=== PATIENT | female | born 1965 | race Caucasian/White ===

== ENCOUNTER 2016-12-24 18:44 | Inpatient (IN) | payer OTHER ==
[2016-12-24] MEDS ORDERED: MAGNESIUM CITRATE 300 ML BOTTLE PO PRN (20:34)
[2016-12-24] MEDS ORDERED: hydrOXYzine PAMOATE 50 MG CAPSULE (FP) PO PRN (20:34)
[2016-12-24] MEDS ORDERED: chlordiazePOXIDE HCL 25 MG CAPSULE PO ONE (20:34)
[2016-12-24] MEDS ORDERED: guaiFENesin/D-METHORPHAN HB 10 ML UNIT-DOSE CUPS PO PRN (20:34)
[2016-12-24] MEDS ORDERED: LOPERAMIDE HCL 2 MG CAPSULE PO PRN (20:34)
[2016-12-24] MEDS ORDERED: MENTHOL/PHENOL 1 EACH UD MM PRN (20:34)
[2016-12-24] MEDS ORDERED: IBUPROFEN 400 MG TABLET (FP) PO PRN (20:34)
[2016-12-24] MEDS ORDERED: MAG HYDROX/AL HYDROX/SIMETH 30 ML UNIT-DOSE CUP PO PRN (20:34)
[2016-12-24] MEDS ORDERED: P-EPHED 60MG/TRIPROLIDI 2.5MG TABLET PO PRN (20:34)
[2016-12-24] MEDS ORDERED: MAGNESIUM HYDROX 2400MG/30ML ORAL SUSPENSION 30 ML CUP PO PRN (20:34)
[2016-12-24 20:45] VITALS: BMI 32.5
--- NOTE | 2016-12-24 20:45 | HP ---
CIWA Score - CIWA Score Nausea/Vomitin-Mild Nausea/No Vomiting Muscle Tremors: 4-Moderate,w/Arms Extend Anxiety: 4-Mod. Anxious/Guarded Agitation: 4-Moderately Restless Paroxysmal Sweats: 1-Minimal Palms Moist Orientation: 0-Oriented Tacttile Disturbances: 0-None Auditory Disturbances: 0-None Visual Disturbances: 0-None Headache: 2-Mild CIWA-Ar Total Score: 16 Admission ROS BHS - HPI Chief Complaint: WITHDRAWAL SX Allergies/Adverse Reactions: Allergies Allergy/AdvReac Type Severity Reaction Status Date / Time No Known Allergies Allergy Verified 12/24/16 19:42 History of Present Illness: 51 YEARS OLD FEMALE WITH LONG HISTORY OF ALCOHOL DEPENDENCE MENAPAUSE X 3 YEARS HAS SEVERE ANXIETY TAKING CROWED TRAIN TO WORK IS ADMITTED TO DETOX Exam Limitations: No Limitations - Ebola screening Have you traveled outside of the country in the last 21 days: No Have you had contact with anyone from an Ebola affected area: No Have you been sick,other than usual withdrawal symptoms: No Do you have a fever: No - Review of Systems Constitutional: Chills, Changes in sleep, Weight Stable EENT: reports: Dental Problems (CURRENT DENTAL WORK) Respiratory: reports: No Symptoms reported Cardiac: reports: No Symptoms Reported GI: reports: Nausea, Poor Fluid Intake, Abdominal cramping : reports: No Symptoms Reported Musculoskeletal: reports: Back Pain, Joint Pain (KNEES) Integumentary: reports: No Symptoms Reported Neuro: reports: Tremors Endocrine: reports: No Symptoms Reported Hematology: reports: No Symptoms Reported Psychiatric: reports: Judgement Intact, Anxious Other Systems: Reviewed and Negative Patient History - Patient Medical History Hx Anemia: No Hx Asthma: No Hx Chronic Obstructive Pulmonary Disease (COPD): No Hx Cancer: No Hx Cardiac Disorders: No Hx Congestive Heart Failure: No Hx Hypertension: No Hx Hypercholesterolemia: No Hx Pacemaker: No HX Cerebrovascular Accident: No Hx Seizures: No Hx Dementia: No Hx Diabetes: No Hx Gastrointestinal Disorders: No Hx Liver Disease: No Hx Genitourinary Disorders: No Hx Sexually Transmitted Disorders: No Hx Renal Disease (ESRD): No Hx Thyroid Disease: No Hx Human Immunodeficiency Virus (HIV): No Hx Hepatitis C: No Hx Depression: No Hx Suicide Attempt: No Hx Bipolar Disorder: No Hx Schizophrenia: No - Patient Surgical History Past Surgical History: No Hx Neurologic Surgery: No Hx Cataract Extraction: No Hx Cardiac Surgery: No Hx Lung Surgery: No Hx Breast Surgery: No Hx Breast Biopsy: No Hx Abdominal Surgery: No Hx Appendectomy: No Hx Cholecystectomy: No Hx Genitourinary Surgery: No Hx Section: No Hx Orthopedic Surgery: No Other Surgical History: DENTAL Anesthesia Reaction: No - PPD History Previous Implant?: Yes Documented Results: Negative w/o proof Implanted On Prior [facility] Admission?: No PPD to be Administered?: Yes - Reproductive History Patient is a Female of Child Bearing Age (11 -55 yrs old): Yes Last Menstrual Period: 12/17/11 Patient : No - Smoking Cessation Smoking history: Former smoker Have you smoked in the past 12 months: No Cigars Per Day: 0 Hx Chewing Tobacco Use: No Initiated information on smoking cessation: No - Substance & Tx. History Hx Alcohol Use: Yes Hx Substance Use: No Substance Use Type: Alcohol Hx Substance Use Treatment: No - Substances Abused Alcohol Route: Oral Frequency: Daily Amount used: liquor- 1 pint, wine - 3 litres Age of first use: 13 Date of Last Use: 12/24/16 Family Disease History - Family Disease History Family Disease History: Heart Disease: Daughter, [place]: Mother (LUNG ), Other: Father (VASCULAR ) Admission Physical Exam BHS - Vital Signs Vital Signs: Vital Signs - 24 hr 12/24/16 19:42 Temperature 97.1 F L Pulse Rate 111 H Respiratory 20 Rate Blood Pressure 142/93 - Physical General Appearance: Yes: Appropriately Dressed, Moderate Distress, Alcohol on Breath, Obese, Tremorous, Irritable, Sweating, Anxious HEENTM: Yes: Hearing grossly Normal, Normal ENT Inspection, Normocephalic, Normal Voice Respiratory: Yes: Chest Non-Tender, Lungs Clear, Normal Breath Sounds, No Respiratory Distress, No Accessory Muscle Use Neck: Yes: Trachea in good position Breast: Yes: Breasts Symetrical Cardiology: Yes: Regular Rhythm, S1, S2, Tachycardia Abdominal: Yes: Non Tender, Soft Genitourinary: Yes: Within Normal Limits Back: Yes: Normal Inspection Musculoskeletal: Yes: full range of Motion, Gait Steady, Back pain, Muscle Pain (KNEES) Extremities: Yes: Normal Range of Motion, Non-Tender, Tremors Neurological: Yes: Alert, Motor Strength 5/5, Normal Response, Depressed Affect Integumentary: Yes: Warm Lymphatic: Yes: Within Normal Limits - Diagnostic (1) Alcohol dependence with uncomplicated withdrawal Current Visit: Yes Status: Acute (2) Severe anxiety with panic Current Visit: Yes Status: Acute Comment: [place]OS[place] 0,122 Cleared for Admission [facility] - Detox or Rehab [facility] Level of Care: Medically Managed Detox Regimen/Protocol: Librium [facility] Breath Alcohol Content Breath Alcohol Content: 0.122 Vital Signs - Vital Signs Vital Signs Refused: No Temperature: 97.1 F Temperature Source: Oral Pulse Rate: 111 Respiratory Rate: 20 Blood Pressure: 142/93 BP Location: Left Arm Blood Pressure Position: Sitting - Height Height: 5 ft 6 in - Weight Weight: 202 lb Weight Measurement Method: Standing Scale Body Mass Index (BMI): 32.5 - Bowel Function Bowel Movement: Yes Urine Pregancy Test - Result Urine Test Results: Negative- NO Line Present Urine Drug Screen - Results Urine Drug Screen Results: TCA-Tricyclic Antidepress
[2016-12-24] MEDS: ACETAMINOPHEN 325 MG TABLET (FP) PO PRN (22:28)
[2016-12-24] MEDS: THIAMINE HCL 100 MG TABLET (FP) PO SCH (23:02)
[2016-12-24] MEDS: diphenhydrAMINE HCL 50 MG CAPSULE PO PRN (23:02)
[2016-12-24] MEDS: chlordiazePOXIDE HCL 25 MG CAPSULE PO SCH (23:02)
[2016-12-24 23:17] LABS: URINE APPEARANCE CLEAR; URINE BILIRUBIN NEGATIVE (NEGATIVE); URINE BLOOD 1+ (NEGATIVE); URINE COLOR STRAW; URINE GLUCOSE (UA) NEGATIVE (NEGATIVE); URINE KETONE TRACE (NEGATIVE); URINE LEUK ESTERASE NEGATIVE (NEGATIVE); URINE NITRITE NEGATIVE (NEGATIVE); URINE PROTEIN NEGATIVE (NEGATIVE); URINE UROBILINOGEN NEGATIVE E.U./dl (0.2-1.0)
[2016-12-24 23:19] LABS: URINE BACTERIA RARE /hpf (NONE SEEN); URINE RBC <1 /hpf (0-3); URINE WBC 1 /hpf (3-5)
[2016-12-25] MEDS: chlordiazePOXIDE HCL 25 MG CAPSULE PO SCH ×4 (05:15→22:25)
[2016-12-25] MEDS: chlordiazePOXIDE HCL 25 MG CAPSULE PO PRN ×2 (07:00→13:35)
[2016-12-25 09:59] LABS: MCH 35.5 pg (25.7-33.7); MCHC 34.4 g/dl (32.0-36.0); MEAN CELL VOLUME 103.2 fl (80-96); MEAN PLT VOLUME 8.1 fl (7.5-11.1); PLATELET COUNT 166 K/MM3 (134-434); RDW 13.1 % (11.6-15.6); WHITE BLOOD COUNT 7.4 K/mm3 (4.0-10.0)
[2016-12-25 10:29] LABS: ALBUMIN 3.8 g/dl (3.4-5.0); ALK PHOS 72 U/L (45-117); ANION GAP 13 (8-16); BILIRUBIN,TOTAL 1.3 mg/dL (0.2-1.0); CALCIUM 8.6 mg/dL (8.5-10.1); CO2 25 mmol/L (21-32); CREATININE 0.6 mg/dL (0.55-1.02); GLUCOSE,RANDOM 131 mg/dL (74-106); SGOT/AST 218 U/L (15-37); SGPT/ALT 65 U/L (12-78)
[2016-12-25] MEDS: PRENATAL VITAMINS W/ FOLIC ACID TABLET (FP) PO SCH (10:37)
[2016-12-25] MEDS: PATIENT'S OWN MEDICATION (NON-FORMULARY) (Estrogen,Con/M-Progest Acet [Prempro 0.45-1.5 Mg PO SCH (10:38)
[2016-12-25] MEDS ORDERED: ONDANSETRON *ODT* 4 MG TABLET SL PRN (10:42)
--- NOTE | 2016-12-25 10:48 | PN ---
S CIWA - CIWA Score Nausea/Vomitin-Int. Nausea w/Dry Heave Muscle Tremors: 3 Anxiety: 3 Agitation: 3 Paroxysmal Sweats: 3 Orientation: 0-Oriented Tacttile Disturbances: 1-Very Mild Itch/Numbness Auditory Disturbances: 0-None Visual Disturbances: 0-None Headache: 0-None Present CIWA-Ar Total Score: 17 BHS Progress Note (SOAP) Subjective: interrupted sleep, sweats, shakes, nausea Objective: 12/25/16 10:45 Vital Signs Temperature 97.7 F 12/25/16 06:45 Pulse Rate 116 H 12/25/16 06:45 Respiratory Rate 20 12/25/16 06:45 Blood Pressure 130/81 12/25/16 06:45 O2 Sat by Pulse Oximetry (%) Laboratory Tests 12/24/16 12/25/16 12/25/16 22:00 07:00 07:00 WBC 7.4 RBC 3.56 L Hgb 12.6 Hct 36.7 MCV 103.2 H MCHC 34.4 RDW 13.1 Plt Count 166 MPV 8.1 Sodium 130 L Potassium 3.7 Chloride 92 L Carbon Dioxide 25 Anion Gap 13 BUN 5 L Creatinine 0.6 Creat Clearance w eGFR > 60 Random Glucose 131 H Calcium 8.6 Total Bilirubin 1.3 H AST 218 H ALT 65 Alkaline Phosphatase 72 Total Protein 7.0 Albumin 3.8 Urine Color Straw Urine Appearance Clear Urine pH 6.0 Ur Specific [place] 1.008 Urine Protein Negative Urine Glucose (UA) Negative Urine Ketones Trace H Urine Blood 1+ H Urine Nitrite Negative Urine Bilirubin Negative Urine Urobilinogen Negative Ur Leukocyte Esterase Negative Urine RBC <1 Urine WBC 1 Ur Epithelial Cells Rare Urine Bacteria Rare pt aox3 in nad ambulating Assessment: 12/25/16 10:46 withdrawal sx's hyponatremia elevated transaminases Plan: cont. detox increase fluids zofran prn repeat basic metabolic sgot/sgpt d/c tylenol
[2016-12-25] MEDS: ACETAMINOPHEN 325 MG TABLET (FP) PO PRN (13:36)
[2016-12-25] MEDS ORDERED: CYCLOBENZAPRINE HCL 10 MG TABLET (FP) ONE (16:45)
--- NOTE | 2016-12-25 16:54 | EKG ---
Test Reason : Blood Pressure : / mmHG Vent. Rate : 100 BPM Atrial Rate : 100 BPM P-R Int : 166 ms QRS Dur : 088 ms QT Int : 352 ms P-R-T Axes : 051 021 038 degrees QTc Int : 454 ms NORMAL SINUS RHYTHM NORMAL ECG NO PREVIOUS ECGS AVAILABLE Confirmed by MARAH CASTORENA MD ([id number]) on 12/25/2016 4:54:28 PM Referred By: Confirmed By:MARAH CASTORENA MD
--- NOTE | 2016-12-25 18:30 | CONSULT ---
[facility] Psychiatric Consult - Data Date of interview: 12/25/16 Admission source: [facility] Identifying data: First admission to [facility] for this 51 y/o female seeking detox treatment for alcohol dependence. Substance Abuse History: - Smoking Cessation. Smoking history: Former smoker. Have you smoked in the past 12 months: No. Cigars Per Day: 0. Hx Chewing Tobacco Use: No. Initiated information on smoking cessation: No. - Substance & Tx. History. Hx Alcohol Use: Yes. Hx Substance Use: No. Substance Use Type : Alcohol. Hx Substance Use Treatment: No. - Substances Abused. Alcohol. Route: Oral. Frequency: Daily. Amount used: liquor- 1 pint, wine - 3 litres. Age of first use: 13. Date of Last Use: 12/24/16. Confirmed by patient. Medical History: GERD. Psychiatric History: Patient denies. Physical/Sexual Abuse/Trauma History: Patient denies. Additional Comment: Urine Drug Screen Results: TCA-Tricyclic Antidepressant.Noted. Mental Status Exam - Mental Status Exam Alert and Oriented to: Time, Place, Person Cognitive Function: Good Patient Appearance: Well Groomed Mood: Hopeful, Euthymic Affect: Appropriate, Normal Range Patient Behavior: Appropriate, Cooperative Speech Pattern: Clear, Appropriate Voice Loudness: Normal Thought Process: Goal Oriented Thought Disorder: Not Present Hallucinations: Denies Suicidal Ideation: Denies Homicidal Ideation: Denies Insight/Judgement: Fair Sleep: Poorly, Difficulty falling asleep Appetite: Good Muscle strength/Tone: Normal Gait/Station: Normal Psychiatric Findings - Problem List ([place] 1, 2,3) (1) Alcohol dependence with uncomplicated withdrawal Current Visit: Yes Status: Acute (2) Insomnia Current Visit: Yes Status: Acute - Initial Treatment Plan Initial Treatment Plan: Psychoeducation.Detoxification.Ambien 10 mg po hs prn.Patient made aware of parasomnias.She agrees with plan.Observation.
[2016-12-25] MEDS: diphenhydrAMINE HCL 50 MG CAPSULE PO PRN (22:24)
[2016-12-25] MEDS: THIAMINE HCL 100 MG TABLET (FP) PO SCH (22:25)
[2016-12-26] MEDS: chlordiazePOXIDE HCL 25 MG CAPSULE PO SCH ×3 (05:11→17:50)
[2016-12-26] MEDS: chlordiazePOXIDE HCL 25 MG CAPSULE PO PRN (07:20)
[2016-12-26] MEDS: PRENATAL VITAMINS W/ FOLIC ACID TABLET (FP) PO SCH (10:09)
[2016-12-26] MEDS: PATIENT'S OWN MEDICATION (NON-FORMULARY) (Estrogen,Con/M-Progest Acet [Prempro 0.45-1.5 Mg PO SCH (10:09)
--- NOTE | 2016-12-26 10:14 | PN ---
[facility] CIWA - CIWA Score Nausea/Vomitin-No Nausea/No Vomiting Muscle Tremors: 3 Anxiety: 3 Agitation: 4-Moderately Restless Paroxysmal Sweats: 3 Orientation: 0-Oriented Tacttile Disturbances: 0-None Auditory Disturbances: 0-None Visual Disturbances: 0-None Headache: 0-None Present CIWA-Ar Total Score: 13 BHS Progress Note (SOAP) Subjective: sweats interrupted sleep low appetite tired Objective: 12/26/16 10:13 Vital Signs Temperature 97.3 F L 12/26/16 06:00 Pulse Rate 100 H 12/26/16 06:00 Respiratory Rate 18 12/26/16 06:00 Blood Pressure 118/78 12/26/16 06:00 O2 Sat by Pulse Oximetry (%) Laboratory Tests 12/24/16 12/25/16 12/25/16 22:00 07:00 07:00 WBC 7.4 RBC 3.56 L Hgb 12.6 Hct 36.7 MCV 103.2 H MCHC 34.4 RDW 13.1 Plt Count 166 MPV 8.1 Sodium 130 L Potassium 3.7 Chloride 92 L Carbon Dioxide 25 Anion Gap 13 BUN 5 L Creatinine 0.6 Creat Clearance w eGFR > 60 Random Glucose 131 H Calcium 8.6 Total Bilirubin 1.3 H AST 218 H ALT 65 Alkaline Phosphatase 72 Total Protein 7.0 Albumin 3.8 Urine Color Straw Urine Appearance Clear Urine pH 6.0 Ur Specific [place] 1.008 Urine Protein Negative Urine Glucose (UA) Negative Urine Ketones Trace H Urine Blood 1+ H Urine Nitrite Negative Urine Bilirubin Negative Urine Urobilinogen Negative Ur Leukocyte Esterase Negative Urine RBC <1 Urine WBC 1 Ur Epithelial Cells Rare Urine Bacteria Rare RPR Titer 12/25/16 07:00 WBC RBC Hgb Hct MCV MCHC RDW Plt Count MPV Sodium Potassium Chloride Carbon Dioxide Anion Gap BUN Creatinine Creat Clearance w eGFR Random Glucose Calcium Total Bilirubin AST ALT Alkaline Phosphatase Total Protein Albumin Urine Color Urine Appearance Urine pH Ur Specific [place] Urine Protein Urine Glucose (UA) Urine Ketones Urine Blood Urine Nitrite Urine Bilirubin Urine Urobilinogen Ur Leukocyte Esterase Urine RBC Urine WBC Ur Epithelial Cells Urine Bacteria RPR Titer Nonreactive repeated labs pending awake/alert ambulating no acute distress Assessment: 12/26/16 10:13 withdrawal sx Plan: continue detox increase fluids f/u pending labs
[2016-12-26 10:24] LABS: CALCIUM 8.8 mg/dL (8.5-10.1)
[2016-12-26 10:25] LABS: CREATININE 0.6 mg/dL (0.55-1.02)
[2016-12-26] MEDS ORDERED: cloNIDine HCL 0.1 MG TABLET PO ONE (10:30)
[2016-12-26] MEDS ORDERED: ZOLPIDEM TARTRATE 10 MG TABLET (PARK CARE ONLY) PO PRN (15:13)
[2016-12-26] MEDS: THIAMINE HCL 100 MG TABLET (FP) PO SCH (22:10)
[2016-12-26] MEDS: chlordiazePOXIDE 5 MG CAPSULE PO SCH (22:10)
[2016-12-27] MEDS: chlordiazePOXIDE 5 MG CAPSULE PO SCH ×2 (06:08→10:28)
--- NOTE | 2016-12-27 08:55 | DS ---
[facility] Detox Discharge Summary Admission Date: 12/24/16 Discharge Date: 12/27/16 - History Present History: Alcohol Dependence - Physical Exam Results Vital Signs: Vital Signs Temperature 97.7 F 12/27/16 06:52 Pulse Rate 86 12/27/16 06:52 Respiratory Rate 18 12/27/16 06:52 Blood Pressure 102/62 12/27/16 06:52 O2 Sat by Pulse Oximetry (%) - Treatment Hospital Course: Detox Protocol Followed, Detoxed Safely, Responded well, Discharged Condition Good - Medication Discharge Medications: Ambulatory Orders Estrogen,Con/M-Progest Acet [Prempro 0.45-1.5 mg Tablet] 1 each PO DAILY - Diagnosis (1) Alcohol dependence with uncomplicated withdrawal Current Visit: Yes Status: Chronic (2) Insomnia Current Visit: Yes Status: Chronic Qualifiers: Insomnia type: unspecified Qualified Code(s): G47.00 - Insomnia, unspecified (3) Severe anxiety with panic Current Visit: Yes Status: Chronic - AMA Did Patient Leave Against Medical Advice: No (pt d/c'ed early -will be going to 0ut pt AA program . )
[2016-12-27 09:41] VITALS: BP 108/80; PULSE 123; TEMP 97.9
[2016-12-27] MEDS: PRENATAL VITAMINS W/ FOLIC ACID TABLET (FP) PO SCH (10:28)
[2016-12-27] MEDS: PATIENT'S OWN MEDICATION (NON-FORMULARY) (Estrogen,Con/M-Progest Acet [Prempro 0.45-1.5 Mg PO SCH (10:28)
[2016-12-27] MEDS ORDERED: chlordiazePOXIDE HCL 10 MG CAPSULE PO SCH (23:00)
== END 2016-12-27 11:13 | disposition home or self-care (01) | DRG 521 ==
LOC: YASAS 18:44 → Y6N 20:06
PROVIDERS: ADMIT Internal Medicine Addiction Medicine; ATTEND Internal Medicine Addiction Medicine
PROC: HZ2ZZZZ Detoxification Services for Substance Abuse Treatment (ICD-10-PCS; principal; 2016-12-24)
DX: F10.230 Alcohol dependence with withdrawal, uncomplicated (principal); E87.1 Hypo-osmolality and hyponatremia; F41.0 Panic disorder [episodic paroxysmal anxiety]; G47.00 Insomnia, unspecified; E66.9 Obesity, unspecified; Z68.32 Body mass index [BMI] 32.0-32.9, adult; R74.0 Nonspecific elevation of levels of transaminase and lactic acid dehydrogenase [LDH]; R00.0 Tachycardia, unspecified; Z87.891 Personal history of nicotine dependence
CPT/HCPCS: 36415; 80048; 80053; 81003; 81015; 84450; 84460; 85027; 86593; 93005; 93010